=== PATIENT | male | born 1990 | race Caucasian/White ===

== ENCOUNTER 2022-08-05 11:25 | Emergency (ER) | payer MEDICAID, OTHER ==
[~2022-08-05] VITALS: Ht 165 cm; Wt 120.0 kg
[~2022-08-05 11:25] MED LIST: NAPR-243 PO; TRAM50TA2 PO; TRM50T PO
--- NOTE | 2022-08-05 12:13 | ED General ---
General Chief Complaint: General Problems/Pain Stated Complaint: SWELLING OF ALL EXTREMITIES Nursing Triage Note: PT AMB TO TRIAGE, PT CO OF EXT SWELLING THAT STARTED YESTERDAY, AND SEVERE TIREDNESS THAT STARTED TODAY. PT STATES CANT HARDLY KEEP EYES OPEN. PT [facility] PT IS HOMELESS Source of Information: Patient Exam Limitations: No Limitations History of Present Illness Date Seen by Provider: August 05, 2022 Time Seen by Provider: 11:55 Initial Comments 31-year-old male presents to the ED from [facility] with complaints of swelling in bilateral legs, ankles, and hands which started this morning upon awakening. He also states "I cannot keep my eyes open" which started today. Reports he sleeps approximately 4 to 5 hours a night, states this is normal for him. He was released from detention about a month ago, has been living on the streets. He was in detention for 7 years. States that sometimes he has to sleep sitting up due to sleeping on the streets, but states he was able to sleep laying down last night. 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 States that he vapes, and smokes cigarettes occasionally. He reports using marijuana last night, states it has been almost a year since he used it. 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 He denies history of heart failure or hypertension. Past medical history includes bipolar, anxiety, ADHD, PTSD, depression. He was out of his medications for the last 5 days, the walk-in clinic is going to refill these. He is supposed to be on Cymbalta, Paxil, Abilify, hydroxyzine, propranolol. He takes propranolol for tremors. The provider from the walk-in clinic called and gave report to this provider. She states that the reason she sent him over here was because he kept falling asleep during her exam. She reported normal vital signs during exam. She did not mention the swelling, patient states he did discuss the swelling with her. Allergies and Home Medications Allergies Coded Allergies: No Known Drug Allergies (Unverified , 03/25/12) Patient Home Medication List Home Medication List Reviewed: Yes Naproxen (Naprosyn) 500 Mg Tablet, 1 EACH PO BID PRN for PAIN Prescribed by: JORI PAGE on 07/05/13 1642 Tramadol Hcl (Ultram) 50 Mg Tab, 50 MG PO Q4-6HR PRN for PAIN Prescribed by: JORI PAGE on 07/05/13 1642 Review of Systems Review of Systems Constitutional: see HPI Past Udhgksi-Pwskyu-Lrohsn Hx Patient Social History Tobacco Use?: Yes Tobacco type used: Cigarettes Smoking Status: Current Someday Smoker Use of E-Cig and/or Vaping dev: Yes E-Cig or Vaping type used: Nicotine Use of E-Cig and/or Vaping Huy: Current Everyday User Substance use?: Yes Substance type: Marijuana Substance frequency: Once in a while Alcohol Use?: No Pt feels they are or have been: No Immunizations Up To Date Tetanus Booster (TDap): Less than 5yrs Influenza Vaccine Up-to-Date: No; Not Current First/Initial COVID19 Vaccinat: YES Second COVID19 Vaccination Jens: YES Seasonal Allergies Seasonal Allergies: No Past Medical History Surgery/Hospitalization HX: CYMBALTA, PAXIL, HYDROSERNA, ABILIFY. MENTAL ILLNESS, PTSD, DEPRESSION, ANXIETY ADD/ADHD, Anxiety, Bipolar Family Medical History No Pertinent Family Hx Physical Exam Vital Signs Vital Signs - First Documented 08/05/22 11:44 Temp 36.8 Pulse 93 Resp 18 B/P (MAP) 139/86 (103) Pulse Ox 96 Capillary Refill : Less Than 3 Seconds Height, Weight, BMI Height: 5'6" Weight: 183lbs. oz. [id number]; 44.00 BMI Method:Stated General Appearance: No Apparent Distress, WD/WN Neck: Non Tender, Supple Respiratory: Lungs Clear, Normal Breath Sounds, No Accessory Muscle Use, No R espiratory Distress Cardiovascular: Regular Rate, Rhythm Extremity: Normal Capillary Refill, Normal Range of Motion, Pedal Edema, Swelling (Nonpitting edema bilateral lower extremities, ankles, feet. Pain with palpation to feet.) Neurologic/Psychiatric: Alert, Normal Mood/Affect Skin: Normal Color, Warm/Dry Progress/Results/Core Measures Suspected Sepsis SIRS Temperature: Pulse: 93 Respiratory Rate: 18 Laboratory Tests 08/05/22 12:45: White Blood Count 10.0 Blood Pressure 139 /86 Mean: 103 Laboratory Tests 08/05/22 12:45: Creatinine 1.06, Platelet Count 294, Total Bilirubin 0.2 Results/Orders Lab Results Laboratory Tests Test 08/05/22 12:45 08/05/22 12:47 Range/Units White Blood Count 10.0 4.3-11.0 10^3/uL Red Blood Count 4.88 4.30-5.52 10^6/uL Hemoglobin 14.8 13.3-17.7 g/dL Hematocrit 43 40-54 % Mean Corpuscular Volume 88 80-99 fL Mean Corpuscular Hemoglobin 30 25-34 pg Mean Corpuscular Hemoglobin Concent 34 32-36 g/dL Red Cell Distribution Width 12.5 10.0-14.5 % Platelet Count 294 130-400 10^3/uL Mean Platelet Volume 9.1 9.0-12.2 fL Immature Granulocyte % (Auto) 0 % Neutrophils (%) (Auto) 63 42-75 % Lymphocytes (%) (Auto) 25 12-44 % Monocytes (%) (Auto) 9 0-12 % Eosinophils (%) (Auto) 2 0-10 % Basophils (%) (Auto) 0 0-10 % Neutrophils # (Auto) 6.3 1.8-7.8 10^3/uL Lymphocytes # (Auto) 2.5 1.0-4.0 10^3/uL Monocytes # (Auto) 0.9 0.0-1.0 10^3/uL Eosinophils # (Auto) 0.2 0.0-0.3 10^3/uL Basophils # (Auto) 0.0 0.0-0.1 10^3/uL Immature Granulocyte # (Auto) 0.0 0.0-0.1 10^3/uL Sodium Level 140 135-145 MMOL/L Potassium Level 4.0 3.6-5.0 MMOL/L Chloride Level 107 98-107 MMOL/L Carbon Dioxide Level 22 21-32 MMOL/L Anion Gap 11 5-14 MMOL/L Blood Urea Nitrogen 20 H 7-18 MG/DL Creatinine 1.06 0.60-1.30 MG/DL Estimat Glomerular Filtration Rate 95 BUN/Creatinine Ratio 19 Glucose Level 96 70-105 MG/DL Calcium Level 8.9 8.5-10.1 MG/DL Corrected Calcium 8.7 8.5-10.1 MG/DL Total Bilirubin 0.2 0.1-1.0 MG/DL Aspartate Amino Transf (AST/SGOT) 25 5-34 U/L Alanine Aminotransferase (ALT/SGPT) 36 0-55 U/L Alkaline Phosphatase 72 40-136 U/L B-Type Natriuretic Peptide < 10.0 <100.0 PG/ML Total Protein 7.3 6.4-8.2 GM/DL Albumin 4.2 3.2-4.5 GM/DL Serum Alcohol < 10 <10 MG/DL Urine Color YELLOW Urine Clarity CLEAR Urine pH 6.0 5-9 Urine Specific [place] 1.025 H 1.016-1.022 Urine Protein NEGATIVE NEGATIVE Urine Glucose (UA) NEGATIVE NEGATIVE Urine Ketones NEGATIVE NEGATIVE Urine Nitrite NEGATIVE NEGATIVE Urine Bilirubin NEGATIVE NEGATIVE Urine Urobilinogen 0.2 < = 1.0 MG/DL Urine Leukocyte Esterase NEGATIVE NEGATIVE Urine RBC (Auto) NEGATIVE NEGATIVE Urine RBC NONE /HPF Urine WBC NONE /HPF Urine Squamous Epithelial Cells NONE /HPF Urine Crystals NONE /LPF Urine Bacteria NEGATIVE /HPF Urine Casts NONE /LPF Urine Mucus NEGATIVE /LPF Urine Culture Indicated NO Urine Opiates Screen NEGATIVE NEGATIVE Urine Oxycodone Screen NEGATIVE NEGATIVE Urine Methadone Screen NEGATIVE NEGATIVE Urine Propoxyphene Screen NEGATIVE NEGATIVE Urine Barbiturates Screen NEGATIVE NEGATIVE Ur Tricyclic Antidepressants Screen NEGATIVE NEGATIVE Urine Phencyclidine Screen NEGATIVE NEGATIVE Urine Amphetamines Screen NEGATIVE NEGATIVE Urine Methamphetamines Screen NEGATIVE NEGATIVE Urine Benzodiazepines Screen NEGATIVE NEGATIVE Urine Cocaine Screen NEGATIVE NEGATIVE Urine Cannabinoids Screen POSITIVE H NEGATIVE My Orders Orders - JENNIFER TALAVERA [employer] Bnp Michelle (08/05/22 12:04) Cbc With Automated Diff (08/05/22 12:04) Comprehensive Metabolic Panel (08/05/22 12:04) Alcohol (08/05/22 12:06) Drug Screen Stat (Urine) (08/05/22 12:06) Urinalysis (08/05/22 12:06) Ed Iv/Invasive Line Start (08/05/22 13:23) Ns Iv 1000 Ml (Sodium Chloride 0.9%) (08/05/22 13:30) Vital Signs/I&O 08/05/22 11:44 Temp 36.8 Pulse 93 Resp 18 B/P (MAP) 139/86 (103) Pulse Ox 96 Capillary Refill : Less Than 3 Seconds Blood Pressure Mean: 103 Progress Note : Progress Note Patient seen evaluated, resting comfortably in recliner, no acute distress. Patient does appear fatigued. Seems to have difficulty staying with conversation due to fatigue. Work-up initiated including CBC, CMP, BNP, alcohol level, UDS, UA. 1323 Labs reviewed. CBC grossly normal, CMP shows elevated BUN 20, normal creatinine 1.06, normal GFR 95. BNP normal. UA shows elevated specific gravity 1.025. UA negative for infection. IV fluids ordered for possible dehydration as evidenced by elevated BUN and elevated urine specific gravity. This could be the cause of his edema. UDS positive for cannabinoids. Serum alcohol negative. I am not finding an acute cause of his fatigue. It could be related to his marijuana use last night, or poor sleep. 1410 Results discussed with patient. Will discharge after IV fluids completed. Discharge instructions and return precautions provided. Departure Impression Primary Impression: Dependent edema Additional Impression: Fatigue Disposition: 01 HOME, SELF-CARE Condition: Stable Departure-Patient Inst. Decision time for Depature: 15:14 Referrals: [facility] (PCP/Family) Primary Care Physician Patient Instructions: Fatigue ED, Dependent Edema (DC) Add. Discharge Instructions: The swelling in your legs and hands may be related to lack of water intake. Increase your water intake to help flush out the fluid that you hold onto. The fatigue may be related to your cannabis consumption. Follow-up with your primary care provider. Return for any new, concerning, or worsening symptoms. All discharge instructions reviewed with patient and/or family. Voiced underst anding. JENNIFER TALAVERA APRN August 05, 2022 12:13
[2022-08-05 12:54] LABS: BASOPHILS % (AUTO) 0 % (0-10); EOSINOPHILS # (AUTO) 0.2 10^3/uL (0.0-0.3); EOSINOPHILS % (AUTO) 2 % (0-10); HEMATOCRIT 43 % (40-54); HEMOGLOBIN 14.8 g/dL (13.3-17.7); LYMPHOCYTES # (AUTO) 2.5 10^3/uL (1.0-4.0); LYMPHOCYTES % (AUTO) 25 % (12-44); MEAN CORPUSCULAR HEMOGLOBIN 30 pg (25-34); MEAN CORPUSCULAR HGB CONC 34 g/dL (32-36); MEAN CORPUSCULAR VOLUME 88 fL (80-99); MEAN PLATELET VOLUME 9.1 fL (9.0-12.2); MONOCYTES # (AUTO) 0.9 10^3/uL (0.0-1.0); MONOCYTES % (AUTO) 9 % (0-12); NEUTROPHILS # (AUTO) 6.3 10^3/uL (1.8-7.8); NEUTROPHILS % (AUTO) 63 % (42-75); PLATELET COUNT 294 10^3/uL (130-400)
[2022-08-05 12:54] LABS: BILIRUBIN,URINE NEGATIVE (NEGATIVE); CLARITY,URINE CLEAR; COLOR,URINE YELLOW; GLUCOSE, URINE (UA) NEGATIVE (NEGATIVE); KETONES,URINE NEGATIVE (NEGATIVE); LEUKOCYTE ESTERASE ,URINE NEGATIVE (NEGATIVE); NITRITE,URINE NEGATIVE (NEGATIVE); PROTEIN,URINE NEGATIVE (NEGATIVE)
[2022-08-05 13:05] LABS: ALBUMIN 4.2 GM/DL (3.2-4.5); CHLORIDE 107 MMOL/L (98-107); SODIUM 140 MMOL/L (135-145)
[2022-08-05 13:06] LABS: CALCIUM 8.9 MG/DL (8.5-10.1)
[2022-08-05 13:06] LABS: BACTERIA,URINE NEGATIVE /HPF
[2022-08-05 13:07] LABS: GLUCOSE 96 MG/DL (70-105)
[2022-08-05 13:08] LABS: TOTAL PROTEIN 7.3 GM/DL (6.4-8.2)
[2022-08-05 13:09] LABS: BILIRUBIN,TOTAL 0.2 MG/DL (0.1-1.0); CARBON DIOXIDE 22 MMOL/L (21-32)
[2022-08-05 13:11] LABS: ALKALINE PHOSPHATASE 72 U/L (40-136); CREATININE SERUM 1.06 MG/DL (0.60-1.30); GFR ESTIMATED 95
[2022-08-05 13:12] LABS: BUN/CREATININE RATIO 19
[2022-08-05 13:14] LABS: ALANINE AMINOTRANSFERASE 36 U/L (0-55)
[2022-08-05 13:15] LABS: AMPHETAMINE SCREEN, URINE NEGATIVE (NEGATIVE); BARBITURATE SCREEN URINE NEGATIVE (NEGATIVE); BENZODIAZEPINES SCREEN URINE NEGATIVE (NEGATIVE); CANNABINOID SCREEN, URINE POSITIVE (NEGATIVE); COCAINE SCREEN URINE NEGATIVE (NEGATIVE); METHADONE STAT NEGATIVE (NEGATIVE); OPIATE SCREEN URINE NEGATIVE (NEGATIVE); OXYCODONE STAT NEGATIVE (NEGATIVE); PROPOXYPHENE STAT NEGATIVE (NEGATIVE); TRICYCLIC ANTIDEPRESSANTS SCRE NEGATIVE (NEGATIVE)
[2022-08-05] MEDS ORDERED: NS IV 1000 ML 1,000 ML IV SCH (13:30)
[2022-08-05 15:24] VITALS: BP 139/86
== END 2022-08-05 15:24 | disposition home or self-care (01) ==
LOC: EDUNIT# 11:25 → ER 11:29
DX: R60.9 Edema, unspecified (principal); R53.83 Other fatigue; R79.89 Other specified abnormal findings of blood chemistry; F90.9 Attention-deficit hyperactivity disorder, unspecified type; F43.10 Post-traumatic stress disorder, unspecified; F32.A Depression, unspecified; F41.9 Anxiety disorder, unspecified; F31.9 Bipolar disorder, unspecified; R25.1 Tremor, unspecified; F17.210 Nicotine dependence, cigarettes, uncomplicated; F17.290 Nicotine dependence, other tobacco product, uncomplicated; Z79.899 Other long term (current) drug therapy
CPT/HCPCS: 80053; 80306; 81000; 83880; 85025; 99284; G0480; 36415; 80320